=== PATIENT | male | born 1985 | race Caucasian/White ===

== ENCOUNTER 2024-07-26 01:19 | Emergency (ER) | payer MEDICAID, OTHER ==
[~2024-07-26] VITALS: Ht 167.6 cm; Wt 89.5 kg
[2024-07-26] MEDS: methylPREDNISolone 125MG 2ML VIAL IV ONE (01:43)
[2024-07-26] MEDS: TRANEXAMIC ACID INJection 1,000 MG in D5W 100 ML IV ONE (01:44)
[2024-07-26] MEDS: FAMOTIDINE IV BAG 20 MG in IV 1 EA IV ONE (01:47)
[2024-07-26] MEDS ORDERED: PRED20TA PO (03:28)
[2024-07-26 03:30] VITALS: BP 143/77; TEMP 98.7; O2SAT 94
== END 2024-07-26 03:45 | disposition home or self-care (01) ==
LOC: M ED 01:19 → EDBD 01:19 → M ED 03:45
DX: T78.3XXA Angioneurotic edema, initial encounter (principal); F17.200 Nicotine dependence, unspecified, uncomplicated; F12.10 Cannabis abuse, uncomplicated; Z79.52 Long term (current) use of systemic steroids
CPT/HCPCS: 96365; 96366; 96375; 99284; J2919; S0028